=== PATIENT | male | born 1950 | race Caucasian/White ===

== ENCOUNTER 2024-11-05 15:43 | Inpatient (IN) | payer MEDICARE ==
[~2024-11-05] VITALS: Ht 162.6 cm; Wt 45.3 kg
[2024-11-05] MEDS ORDERED: NS 1,000 ML IV SCH ×3 (15:55→20:50)
[2024-11-05 16:29] LABS: BASOPHILS ABSOLUTE AUTO 0.01 K/mm3 (0.00-0.23); BASOPHILS PERCENT AUTO 0 % (0-2); EOSINOPHILS PERCENT AUTO 0 % (0-6); Hematocrit 39.7 % (37.0-53.0); Hemoglobin 12.9 g/dL (13.5-17.5); IMMATURE GRAN ABSOLUTE AUTO 0.09 K/mm3 (0.00-0.10); IMMATURE GRAN PERCENT AUTO 1 % (0-1); LYMPHOCYTES ABSOLUTE AUTO 0.52 K/mm3 (0.84-5.20); LYMPHOCYTES PERCENT AUTO 3 % (21-46); MONOCYTES ABSOLUTE AUTO 0.67 K/mm3 (0.16-1.47); MONOCYTES PERCENT AUTO 4 % (4-13); Mean Corpuscular HGB 30.2 pg (26.0-34.0); Mean Corpuscular HGB Conc 32.5 g/dL (31.5-36.5); Mean Corpuscular Volume 93 fL (80-100); Mean Platelet Volume 10.4 fL (9.1-12.4); NEUTROPHILS ABSOLUTE AUTO 13.86 K/mm3 (1.96-9.15); NEUTROPHILS PERCENT AUTO 92 % (41-73); Platelet Count 233 K/mm3 (150-400); RDW Coefficient Variation 14.2 % (11.7-14.2); Red Blood Cell Count 4.27 M/mm3 (4.30-5.90); White Blood Cell Count 15.15 K/mm3 (4.00-11.30)
[2024-11-05 16:51] LABS: PCO2 Arterial 27.2 mmHg (35-45); PO2 Arterial 164 mmHg (80-100); pH Blood Arterial 7.33 (7.35-7.45)
[2024-11-05 16:56] LABS: Albumin, Blood 2.5 g/dL (3.4-5.0); Albumin/Globulin Ratio 0.7 (0.8-1.8); Bilirubin, Total 1.3 mg/dL (0.1-1.0); Calcium, Blood 8.2 mg/dL (8.5-10.1); Creatinine, Blood 2.9 mg/dL (0.60-1.20); Globulin, Blood 3.4 g/dL (2.2-4.0); Potassium, Blood 3.8 mmol/L (3.5-5.5); Total Protein, Blood 5.9 g/dL (6.4-8.2)
[2024-11-05] MEDS ORDERED: CefTRIAXone Sodium 1,000 MG in NS 50 ML IV ONE (17:05)
[2024-11-05] MEDS ORDERED: Ondansetron HCl 2 MG / ML 2ML Vial IV PRN (20:50)
[2024-11-05] MEDS ORDERED: Azithromycin 500 MG in NS 250 ML IV SCH (21:00)
[2024-11-05 21:37] LABS: Bicarbonate Venous 18.6 mmol/L (24.0-30.0); PCO2 Venous 43.3 mmHg (38-42); pH Blood Venous 7.29 (7.34-7.37)
[2024-11-05 21:48] LABS: Hematocrit 41.3 % (37.0-53.0); Hemoglobin 13.4 g/dL (13.5-17.5); Mean Corpuscular HGB Conc 32.4 g/dL (31.5-36.5); Mean Corpuscular Volume 93 fL (80-100); Mean Platelet Volume 10.2 fL (9.1-12.4); Platelet Count 211 K/mm3 (150-400); RDW Coefficient Variation 14.3 % (11.7-14.2); RDW Standard Deviation 48.7 fL (35.1-46.3); Red Blood Cell Count 4.46 M/mm3 (4.30-5.90); White Blood Cell Count 13.85 K/mm3 (4.00-11.30)
[2024-11-05 22:00] VITALS: BP 119/97
[2024-11-05] MEDS ORDERED: Pantoprazole Sodium 40 MG Injection IV ONE (22:00)
[2024-11-05 22:04] LABS: Bun/Creatinine Ratio 39.8 (12.0-20.0); Calcium, Blood 7.7 mg/dL (8.5-10.1); Creatinine, Blood 2.89 mg/dL (0.60-1.20); Potassium, Blood 4.3 mmol/L (3.5-5.5)
[2024-11-05 22:20] VITALS: BP 97/67
[2024-11-05 22:54] VITALS: BP 97/69
[2024-11-05 23:30] VITALS: BP 100/67
[2024-11-05 23:45] VITALS: BP 109/65
[2024-11-06] VITALS (10 sets, daily range): BP systolic 94–132; BP diastolic 59–89
--- NOTE | 2024-11-06 02:35 | NUR ---
DENTURES I CHARTED THAT THE PT DID NOT HAVE TEETH, HOWEVER, ONCE HIS MENTATION STARTED TO CLEAR A BIT HE LET ME LOOK IN HIS MOUTH AND HE HAS UPPER AND LOWER DENTURES THAT HE SAYS HE WEARS ALL THE TIME.
[2024-11-06 04:22] LABS: BASOPHILS ABSOLUTE AUTO 0.01 K/mm3 (0.00-0.23); BASOPHILS PERCENT AUTO 0 % (0-2); EOSINOPHILS PERCENT AUTO 0 % (0-6); Hematocrit 38.2 % (37.0-53.0); IMMATURE GRAN ABSOLUTE AUTO 0.05 K/mm3 (0.00-0.10); IMMATURE GRAN PERCENT AUTO 0 % (0-1); LYMPHOCYTES ABSOLUTE AUTO 0.46 K/mm3 (0.84-5.20); LYMPHOCYTES PERCENT AUTO 4 % (21-46); MONOCYTES ABSOLUTE AUTO 0.51 K/mm3 (0.16-1.47); MONOCYTES PERCENT AUTO 4 % (4-13); Mean Corpuscular HGB 29.3 pg (26.0-34.0); Mean Corpuscular HGB Conc 31.4 g/dL (31.5-36.5); Mean Corpuscular Volume 93 fL (80-100); Mean Platelet Volume 10.4 fL (9.1-12.4); NEUTROPHILS ABSOLUTE AUTO 10.57 K/mm3 (1.96-9.15); NEUTROPHILS PERCENT AUTO 91 % (41-73); Platelet Count 187 K/mm3 (150-400); RDW Coefficient Variation 14.5 % (11.7-14.2); RDW Standard Deviation 49.3 fL (35.1-46.3)
[2024-11-06 04:51] LABS: Albumin, Blood 2.5 g/dL (3.4-5.0); Albumin/Globulin Ratio 0.8 (0.8-1.8); Bun/Creatinine Ratio 41.4 (12.0-20.0); Calcium, Blood 7.7 mg/dL (8.5-10.1); Creatinine, Blood 2.85 mg/dL (0.60-1.20); Globulin, Blood 3.3 g/dL (2.2-4.0); Potassium, Blood 3.7 mmol/L (3.5-5.5); Total Protein, Blood 5.8 g/dL (6.4-8.2)
[2024-11-06] MEDS ORDERED: Lactated Ringer's 1,000 ML IV SCH (05:15)
[2024-11-06] MEDS ORDERED: Pantoprazole Sodium 40 MG Injection IV SCH (06:00)
[2024-11-06] MEDS ORDERED: D5W-1/4NS 1,000 ML IV ONE (06:00)
--- NOTE | 2024-11-06 07:30 | NUR ---
ASSUMPTION OF CARE: ASSUMED CARE OF PT AFTER REPORT FROM NAI, RN. PT IS AROUSABLE TO THIS RN IN ROOM. AXO TO SELF. HE IS UNABLE TO STATEDATE/LOCATION/SITUATION. HE IS COHERENT AND CAN ANSWER YES AND NO QUESTIONS. HE HAS 1 PATENT IV 20G TO RFA WITH D5 RUNNING AT 100ML/HR. ON ASSESMENT HE IS EXTREMLY CACHECTIC. APS REPORTS THAT PT IS "INDEPENDENT" AT HOME BUT WOULD LIKELY BENEFIT FROM ASSISTANCE HE STRUGGLES WITH AMBULATION, EATING WELL, AND LIVES ON THIRD FLOOR OF APARTMENT, FAMILY IN [place] HAS BEEN CONTATCED AND IS DRIVING OVER TO DISCUSS FURTHER PLAN OF CARE. THEY STATE THEY WILL OFFER TO TAKE PT BACK TO [place] WITH THEM. PT HR SINUS 50-60S WAS PREVIOUSLY IN A-FIB IN ER. CONVERTED WITH FLUIDS. DENIES C/P. PT DROWSY. FIDGETY WHEN AWAKE BUT HAS NOT PULLED IV OR CORDS. HE HAS SEVERAL WOUNDS ANDS EXCORIATIONS T/O HIS SKIN, WAS FOUND DOWN. SOCIAL WORK, PALLIATIVE, AND APS INVOLVED IN CARE. VSS AND CALL LIGHT IN REACH. PT PLACED IN BREIF, SURG CONSULT ORDERED FOR POSITIVE FECAL OCCULT IN ED. PT FAILED BEDSIDE SWALLOW EVAL AND ST EVAL ORDERED WHERE PT WAS PLACED NPO. PLAN FOR TPN FOR NUTRITION.
[2024-11-06 07:38] LABS: Influenza A, PCR NEGATIVE (NEGATIVE); Influenza B, PCR NEGATIVE (NEGATIVE); Resp Syncytial Virus, PCR NEGATIVE (NEGATIVE); SARS-Cov-2 (COVID-19) PCR, MMC NEGATIVE (NEGATIVE)
[2024-11-06] MEDS ORDERED: Dextrose 5% 1,000 ML IV SCH ×2 (09:00→18:00)
[2024-11-06] MEDS ORDERED: Heparin Sodium 5000 Units/ML 1ML MDV SC SCH (09:00)
[2024-11-06] MEDS ORDERED: TPN Consult Notification XX ONE (11:50)
--- NOTE | 2024-11-06 12:38 | NUR ---
CASE CONFRENCE- DISCUSSED CASE WITH BRAND STRATEGIST. PATIENT HAS TWO SISTERS AND A FATHER THAT LIVE IN [place]. SISTER JEREMIAH WILL BE HERE TOMORROW. DISCUSSED WITH PC TEAM. PC WILL CONTINUE TO FOLLOW.
--- NOTE | 2024-11-06 15:54 | NUR ---
PT HAS INCREASE IN RESTLESSNESS, PULLING AT CLOTHES. WIRES. PT CBG CHECKED 112. AWAITING TO START TPN. PT FAMILY TO BE HERE BETWEEN [id number] PER PT FRIEND. PT VSS
[2024-11-06] MEDS ORDERED: Parenteral Electolytes 40 ML,POTASSIUM PHOS,M-BASIC-D-BASIC 30 MMOL,Multivitamins 10 ML... IV SCH (17:00)
[2024-11-06] MEDS ORDERED: CefTRIAXone Sodium 1,000 MG in NS 100 ML IV SCH (18:00)
--- NOTE | 2024-11-06 18:32 | NUR ---
PCU DAY SHIFT SUMMARY: REFER TO PT ASSUMPTION OF CARE NOTE. THERE WERE NO NOTABLE CHNAGES T/O THE DAY. PT REMAINED ON RA SATTTING >95%. REPORTED NO C/P. HE WAS ABLE TO ANSWER SOEM QUESTIONS. INCONTINENT OF STOOL AND URINE, PPN STARTED THROUGH IV. PT FAMILY FROM [place] ON WAY TO DISCUSS PLAN OF CARE. PT VSS B/P SOFT AT TIMES. APS HERE TO DISCUSS PT AND REPORTS HE WAS LAST OUT AND ABOUT 10/29/2024. PALLIATIVE CARE REQUEST CALL WHEN FAMILY ARRIVES. NO RUNS OF A-FIB. D5 RUNNING AT 150ML/HR FOR ELEVATED SODIUM.
--- NOTE | 2024-11-07 01:51 | NUR ---
UPDATE: PT'S TPN INFILTRATED. PT HAS HAD MULTIPLE IV'S INFILTRATE WITH TPN. THIS RN DISCUSSED THIS WITH NOC MD. NO NEW ORDERS AT THIS TIME. MD TO FOLLOW UP AT BEDSIDE.
[2024-11-07 03:59] VITALS: BP 129/85
[2024-11-07 04:36] LABS: Anion Gap 9 mmol/L (3-11); Blood Urea Nitrogen 87 mg/dL (8-24); Bun/Creatinine Ratio 40.3 (12.0-20.0); CO2, Blood 22 mmol/L (21-32); Chloride, Blood 126 mmol/L (98-108); Creatinine, Blood 2.16 mg/dL (0.60-1.20); Glomerular Filtration Rate 31 (60-); Glucose, Blood 103 mg/dL (70-99); Magnesium, Blood 3.2 mg/dL (1.6-2.4); Phosphorus, Blood 3.3 mg/dL (2.5-4.9); Potassium, Blood 3.5 mmol/L (3.5-5.5); Sodium, Blood 153 mmol/L (136-145); Triglycerides 76 mg/dL (30-160)
--- NOTE | 2024-11-07 05:18 | NUR ---
SHIFT SUMMARY PT ORIENTED TO SELF AND PLACE. ABLE TO PARTICIPATE IN SOME APPROPRIATE CONVERSATION. UNABLE TO USE CALL LIGHT OR EXPRESS NEEDS APPROPRIATELY. TPN HAS INFILTRATED MULTIPLE IV'S IN THE LAST [address] MCCRARY WHO SUGGESTS TO STOP TPN FOR NOW AND ADDRESS NUTRITIONAL NEEDS DURING THE DAY. PT IS INCONTINENT B&B HE IS DOES NOT CALL FOR ASSISTANCE WITH B&B EMPTYING. PT VERY CACHEXIC, REDNESS OVER BONY PROMINENCES, MEPILEX'S PLACED ON COCCYZ AND HIPS. Q2 TURNS, THOUGH PT IS VERY RESTLESS AND SHIFTING FREQUENTLY IN BED INDEPENDENTLY. PT IS VITALLY STABLE. SINUS HAYDEN ON TELE. SODIUM LEVEL TRENDING DOWN, LAST 153.
[2024-11-07 07:59] VITALS: BP 99/64
[2024-11-07] MEDS ORDERED: Dextrose 5% 1,000 ML IV SCH ×2 (09:00→14:00)
[2024-11-07 11:22] VITALS: BP 117/56
[2024-11-07 15:48] VITALS: BP 92/61
--- NOTE | 2024-11-07 17:20 | NUR ---
SHIFT SUMMARY PT REMAINS ALERT TO SELF AND PLACE. PT SLOW TO RESPOND AND SPEECH IS DIFFICULT TO UNDERSTAND. BP STABLE. HR REMAINS SB 40'S. PT DENIES ANY PAIN. INCONTINENT OF URINE THIS SHIFT. PT REPOSITIONED Q2H TO PREVENT PRESSURE INJURY, BUT PT MOVES HIMSELF IN THE BED FREQUENTLY. PT AWAITING PICC LINE PLACEMENT FOR CPN. D5 INFUSING PER ORDERS. LEFT ARM SWOLLEN FROM IV INFILTRATION ON PREVIOUS SHIFT. ARM ELEVATED ON PILLOWS. PT'S SISTER AT BEDSIDE THIS SHIFT AND UPDATED BY DR. GARCIA. WILL REPORT OFF TO ONCOMING RN
[2024-11-07 19:45] VITALS: BP 104/71
[2024-11-07 23:17] VITALS: BP 108/66
[2024-11-08 03:37] VITALS: BP 115/70
--- NOTE | 2024-11-08 04:42 | NUR ---
SHIFT SUMMARY. PATIENT IS ALERT AND ORIENTED WITH BOUTS OF CONFUSION. PATIENT CALLS APPROPRIATELY AND IS ABLE TO MAKE HIS NEEDS KNOWN. PATIENT HAD A 6 BEAT RUN OF V-TACH; SEE PREVIOUS NOTE. PATIENT USING URINAL AT BEDSIDE; PATIENT IS CONTINENT-BSC FOR BOWEL MOVEMENTS WITH 1P ASSIST. BED IS LOCKED IN THE LOWEST POSITION WITH CALL LIGHT IN REACH. CARE IS ONGOING.
[2024-11-08 04:57] LABS: Creatinine, Blood 1.5 mg/dL (0.60-1.20); Magnesium, Blood 2.4 mg/dL (1.6-2.4); Phosphorus, Blood 2.4 mg/dL (2.5-4.9); Potassium, Blood 3.2 mmol/L (3.5-5.5)
[2024-11-08] MEDS ORDERED: Potassium Chloride 40 MEQ in NS 250 ML IV ONE (06:00)
[2024-11-08 08:07] VITALS: BP 113/65
[2024-11-08] MEDS ORDERED: Potassium Phosphate Dibasic 30 MM in Dextrose 5% 500 ML IV STA (08:13)
[2024-11-08] MEDS ORDERED: Dextrose 5% 1,000 ML IV SCH ×2 (09:00→15:20)
[2024-11-08] MEDS ORDERED: Amino Acids 4.25 %/Dextrose 5% 1,000 ML IV SCH (09:15)
[2024-11-08] MEDS ORDERED: Potassium Phosphate Dibasic 30 MM in Dextrose 5% 500 ML IV ONE ×2 (10:00→11:10)
[2024-11-08] MEDS ORDERED: TPN Consult Notification XX ONE (11:40)
[2024-11-08 16:44] VITALS: BP 99/65
[2024-11-08] MEDS ORDERED: Parenteral Electolytes 40 ML,Potassium Phosphate Dibasic 30 MM,Multivitamins 10 ML,ZINC... IV SCH (17:00)
--- NOTE | 2024-11-08 17:06 | NUR ---
ASSUMED CARE FROM 0700. PICC PLACED TODAY AND D5 INFUSING AT 150ML/HR. SISTER AT BEDSIDE. PT VERBALIZES SISTER IS HIS DECISION MAKER AND SISTER AGREES. NUTRITION DISCUSSED AND PT AGREES TO FEEDING TUBS AND CUSTODIAL CARE IF NECESSARY. TPN STARTED AT 70ML/HR. STRICT NPO FOLLOWED. MEPILEX IN PLACE ON MELANIE PROMINENCES FOR PREVENTATIVE. Q2 TURNS THROUGHOUT SHIFT. A&OX3. ORIENTED TO SELF, PLACE, SITUATION. WICKING SYSTEM IN PLACE. STRICT BEDREST DUE TO WEAKNESS. TRANSFER TO MEDICAL FLOOR. REPORT GIVEN TO RN ASSUMING CARE.
--- NOTE | 2024-11-08 18:53 | NUR ---
SHIFT SUMMARY PATIENT ARRIVED TO MEDICAL FLOOR AROUND 1730, TPN INFUSING, D5 INFUSING. PICC LINE IN PLACE, TRIPLE LUMEN. FAMILY PRESENT AT BEDSIDE. MALE PURWICK IN PLACE, HOOKED TO SUCTION ON ARRIVAL. ORAL SUCTION SET UP. PATIENT NPO. ABLE TO GIVE SHORT RESPONSES, VOICE SOFT AND AT TIMES UNINTELLIGABLE. FAMILY STATES HE DOES NOT USE CALL LIGHT.
[2024-11-08 20:25] VITALS: BP 102/71
[2024-11-09 00:22] VITALS: BP 109/69
--- NOTE | 2024-11-09 03:46 | NUR ---
CLINIC OFFICE MANAGER SUMMARY: PT A&OX3. SOFT SPOKEN WITH SHORT AND SIMPLE RESPONSES. PT DOES NOT USE CALL LIGHT. FREQUENT VISUAL SAFETY CHECKS DONE T/O SHIFT. NO ACUTE EVENTS T/O SHIFT. PT STRICT NPO. TPN AND D5 INFUSING ORDERED. MALE PUREWICK IN PLACE, DRAINGING YELLOW URINE. 1-2 PERSON ASSIST WITH BED MOBILITY. BED IN LOWEST POSITION, CARES ONGOING ORDERED.
[2024-11-09 04:08] VITALS: BP 125/71
[2024-11-09 05:56] LABS: Bun/Creatinine Ratio 30.1 (12.0-20.0); Calcium, Blood 7.7 mg/dL (8.5-10.1); Creatinine, Blood 1.13 mg/dL (0.60-1.20); Magnesium, Blood 2.3 mg/dL (1.6-2.4); Phosphorus, Blood 2.1 mg/dL (2.5-4.9); Potassium, Blood 3.8 mmol/L (3.5-5.5)
[2024-11-09 07:15] VITALS: BP 116/67
[2024-11-09] MEDS ORDERED: Potassium Phosphate Dibasic 30 MM in Dextrose 5% 500 ML IV SCH (09:00)
--- NOTE | 2024-11-09 11:57 | NUR ---
Case reviewed with attending provider. Medical history, family constellation, and clinical trajectory discussed. Initial concerns were expressed when the principal was non-compos mentis, that he was bereft of a proxy decision maker. It is reported that his condition has stablized with a resultant imrpovement in cognition. He is now able to provide his own care plan attestation. In the event of incapacitation he has a family member i.e. a sister, who is involved and willing to support the decision making process. She is planning to pursue a voluntary guardianship arrangement. My recommendation in the interim is to dispatch palliative care, and have the principal complete an [place] Advance Directive that formaly designates his sister as the proxy. Thank you for this consult. Americo Potter, PhD, DARA
[2024-11-09] MEDS ORDERED: Docusate Sodium Liquid 100 MG UDC PT PRN (15:40)
[2024-11-09] MEDS ORDERED: Magnesium Hydroxide Conc 10 ML UDC PT PRN (15:40)
[2024-11-09] MEDS ORDERED: Bisacodyl 10 MG Supp PR PRN (15:40)
[2024-11-09 15:54] VITALS: BP 97/61
[2024-11-09 15:55] VITALS: BP 97/61
--- NOTE | 2024-11-09 18:32 | NUR ---
SUMMARY- PT AAOX3-4 THIS SHIFT. BEDREST. NO COMPLAINTS OF PAIN. PT TURNED Q 2 HRS THIS SHIFT. PT ON RA. DOBHOFF PLACED AT 1800 THIS SHIFT. WAITING FOR CXR TO CONFIRM OKAY TO START TUBE FEEDINGS.
[2024-11-09 19:38] VITALS: BP 104/70
[2024-11-09] MEDS ORDERED: NS 250 ML IV PRN (21:05)
[2024-11-10] MEDS ORDERED: TraMADol HCl 50 MG Tab PO PRN (00:30)
[2024-11-10] MEDS ORDERED: Acetaminophen 325 MG TABLET PO PRN (00:30)
[2024-11-10 00:52] VITALS: BP 100/64
[2024-11-10 03:50] VITALS: BP 105/70
--- NOTE | 2024-11-10 05:05 | NUR ---
SHIFT SUMMARY: PT A&O X3-4. SOFT SPOKEN AND SLOW WITH SPEECH. DOBHOFF PLACEMENT CONFIMRED WITH XRAY, DISCUSSED WITH HOSPITALIST. TF INITIATED PER ORDERS / ORDER. NO ADVERSE SIDE EFFECTS / COMPLAINTS T/O SHIFT TO TF. PT C/O PAIN IN NOSE, NEW ORDERS OBTAINED IN ADDITION TO HYPOGLYCEMIC PROTOCOL ORDERS FOR CBG OF 77. TURN Q2H SCHEDULE IN PLACE. PT DOES NOT USE CALL LIGHT. FREQUENT ROUNDING DONE ON PT T/O SHIFT. BED IN LOWEST POSITION. CARES ONGOING ORDERED.
[2024-11-10 06:58] LABS: Calcium, Blood 7.7 mg/dL (8.5-10.1); Creatinine, Blood 1.04 mg/dL (0.60-1.20); Magnesium, Blood 1.9 mg/dL (1.6-2.4); Phosphorus, Blood 2.3 mg/dL (2.5-4.9); Potassium, Blood 3.9 mmol/L (3.5-5.5)
[2024-11-10 07:10] VITALS: BP 91/58
[2024-11-10] MEDS ORDERED: Protein Supplement 30 ML UD PT SCH (09:00)
--- NOTE | 2024-11-10 15:34 | NUR ---
MET WITH PT AT BEDSIDE, DOBHOFF IN PLACE. PT'S BREATHING IS AUDIBLY MOIST, ALTHOUGH 02 SATS 97%, PULSE 64. PT STATES HE'S HAVING A HARD TIME CLEARING SECRETIONS. NOTIFIED PHYSICIAN.
[2024-11-10] MEDS ORDERED: Scopolamine Hydrobromide Patch TOP SCH (15:45)
[2024-11-10 17:40] VITALS: BP 92/63
--- NOTE | 2024-11-10 18:45 | NUR ---
SUMMARY- AAOX2-3. NO COMPLAINTS OF PAIN BESIDES MINIMAL NOSE/THROAT PAIN FROM DOBHOFF TUBE. BEDREST. ON RA. PT HAS EXCESS SECRETIONS. MOUTH SUCTIONED. PALLIATIVE CALLED. THIS RN ASKED IF ATROPINE DROPS WOULD BE APPROPRIATE; OR ASKED ABOUT ORDERING A SCOPOLOMINE PATCH. RADHA CAME TO BEDSIDE. RADHA ORDERED SCOPOLOMINE PATCH. WOUND DRESSINGS CHANGED THIS SHIFT. TUBE FEEDINGS INCREASED TO 30ML/HR. PT TOLERATED WELL.
[2024-11-10 20:05] VITALS: BP 97/60
[2024-11-10] MEDS ORDERED: Arginine/Glutamine/Calcium Hmb 1 Packet PT SCH (21:00)
[2024-11-11 00:22] VITALS: BP 90/61
[2024-11-11 05:02] VITALS: BP 96/60
[2024-11-11 05:50] LABS: Bun/Creatinine Ratio 34.1 (12.0-20.0); Calcium, Blood 7.6 mg/dL (8.5-10.1); Creatinine, Blood 0.91 mg/dL (0.60-1.20); Phosphorus, Blood 1.8 mg/dL (2.5-4.9); Potassium, Blood 3.9 mmol/L (3.5-5.5)
--- NOTE | 2024-11-11 06:01 | NUR ---
PATIENT HAS BEEN SLEEPING INTERMITTANTLY THROUGHOUT THE NIGHT. CONDOM CATHETER IS PATENT AND DRAINING CLEAR YELLOW URINE. FEEDING TUBE IS INFUSING WITHOUT COMPLICATIONS. PATIENT DENIES PAIN. PATIENT IS ORIENTED X2. VITAL SIGNS ARE STABLE. SAFETY PRECAUTIONS ARE BEING MAINTAINED.
[2024-11-11] MEDS ORDERED: Multivitamins-Minerals Liquid 15 ML Oral Syringe PT SCH (09:00)
[2024-11-11] MEDS ORDERED: Thiamine HCl 100 MG Tab PT SCH (09:00)
[2024-11-11 09:03] VITALS: BP 97/65
[2024-11-11] MEDS ORDERED: Potassium Phosphate Dibasic 30 MM in Dextrose 5% 500 ML IV STA (09:20)
--- NOTE | 2024-11-11 11:59 | NUR ---
ATTEMPTED VISIT THIS MORNING. PT APPEARED ASLEEP. NO S/SX OF DISTRESS NOTED. PRIMARY RN DENIES ANY ACUTE NEEDS AT THIS TIME.
[2024-11-11 12:31] VITALS: BP 96/63
[2024-11-11 16:52] VITALS: BP 103/66
--- NOTE | 2024-11-11 17:53 | NUR ---
SUMMARY- NO CHANGES WITH PT THIS SHIFT. NO ACUTE EVENTS. AAOX2-3. NO COMPLAINTS OF PAIN. BEDREST. PT ON RA. PT VERBALIZED HE WOULD LIKE A PEG TUBE FOR FEEDINGS IN THE FUTURE WHEN THE DOBHOFF WAS REMOVED.
[2024-11-11 19:51] VITALS: BP 105/66
[2024-11-12] VITALS (7 sets, daily range): BP systolic 101–134; BP diastolic 58–82
[2024-11-12] MEDS ORDERED: FentaNYL Citrate 50 MCG/ML 2 ML Injection IV PRN (02:50)
--- NOTE | 2024-11-12 04:15 | NUR ---
SHIFT SUMMARY PATIENT HAD NO ACUTE CHANGES. AXOX 2-3 AMD BEDREST. CONDOM CATH IN PLACE. NPO WITH DOBHOFF IN PLACE, TUBE FEEDING @ 30mL/HR. DENIES CHEST PAIN, SOB, AND N/V. VSS/AFEBRILE. CBG 105. PICC LINE RU ARM. IV ABX INFUSED. TELE MONITOR NSR 60. SLEPT ON/OFF. CALL LIGHT IN REACH. BED IN LOWEST POSITION. WILL CONTINUE TO MONITOR UNTIL DAY SHIFT NURSE ASSUMES CARE.
[2024-11-12 05:44] LABS: Magnesium, Blood 1.7 mg/dL (1.6-2.4); Phosphorus, Blood 2.4 mg/dL (2.5-4.9)
[2024-11-12 10:03] LABS: Calcium, Blood 7.6 mg/dL (8.5-10.1); Creatinine, Blood 0.85 mg/dL (0.60-1.20); Potassium, Blood 3.7 mmol/L (3.5-5.5)
[2024-11-12] MEDS ORDERED: Potassium Phosphate Dibasic 10 MM in Dextrose 5% 250 ML IV STA (14:40)
--- NOTE | 2024-11-12 16:37 | NUR ---
CASE CONFRENCE- DISCUSSED CASE WITH PROVIDER, FEATHEREDGER AND REDUCER MACHINE, AND DIETITION. PATIENT IS CONSIDERING A PEG TUBE. ROUNDED ON PATIENT THIS SHIFT HE IS SLEEPING, BUT APPEARS COMFORTABLE AT THIS TIME. RECIEVING NUTRITION THROUGH MELANIA KELLY. PC WILL CONTINUE TO FOLLOW
--- NOTE | 2024-11-12 18:25 | NUR ---
SHIFT SUMMARY PATIENT SLEEPING MUCH OF SHIFT. HE DOES ATTEMPT TO PARTICIPATE WITH TURNING DURING BEDBATH X2 TODAY, 2 BM NOTED DURING THIS SHIFT. HE IS ABLE TO FOLLOW COMMANDS DURING ISOMETRIC EXERCISE ATTEMPTS BY THIS HEAD OF STRATEGY. HE KNOWS HIS NAME/, ABLE TO USE WHITEBOARD TO STATE DATE, KNOWS HE IS IN [facility] AND THAT HIS HEALTH HAS SIGNIFICANTLY DECLINED IN THE PAST 2 WEEKS. HE DENIES ANY PAIN ISSUES. HE HAS BEEN TOLERATING RATE INCREASE TODAY. BED IN LOW POSITION, CALL LIGHT IN REACH. HE DOES NOT CALL AND NEEDS FREQUENT ROUNDING AND IS TURNED Q2 HOURS.
[2024-11-13 03:49] VITALS: BP 101/61
--- NOTE | 2024-11-13 04:00 | NUR ---
SHIFT SUMMARY PATIENT HAD NO ACUTE CHANGES. AXOX 3 WITH CONFUSION AND SLOW TO RESPOND. NPO AND BEDREST. CONDOM CATH IN PLACE. DOBHOFF WITH 40 mL FEEDING. DENIES CHEST PAIN, SOB, AND N/V. VSS/AFEBRILE. POWER PICC RU ARM. IV ABX INFUSED. TELE MONITOR SB 62. CBG 99. CALL LIGHT IN REACH. BED IN LOWEST POSITION. WILL CONTINUE TO MONITOR UNTIL DAY SHIFT NURSE ASSUMES CARE.
[2024-11-13 07:43] VITALS: BP 113/58
[2024-11-13 08:48] LABS: Calcium, Blood 7.6 mg/dL (8.5-10.1); Creatinine, Blood 0.84 mg/dL (0.60-1.20); Magnesium, Blood 1.6 mg/dL (1.6-2.4); Potassium, Blood 3.9 mmol/L (3.5-5.5)
[2024-11-13 12:00] VITALS: BP 107/66
[2024-11-13 16:18] VITALS: BP 115/72
--- NOTE | 2024-11-13 17:07 | NUR ---
SHIFT SUMMARY PT CONT LEVEL OF CARE WITH NO ACUTE CHANGES NOTED. PT NOTED TO BE A&OX 2-3. PT REMAINS ON BEDREST. PT NOTED TO BE INCONT OF BOWEL AND BLADDER. PT DENIES PAIN THIS SHIFT. PT CONT TO BE NPO WITH DOBHOFF IN PLACE FEED RATED NOTED TO INCREASE TO 50/HR AND FLUSH RATE NOTED TO DECREASE TO 30ML Q4HR. PT CONT TO UTILIZE DOBHOFF FOR MEDICATION USE WELL.
[2024-11-13 19:42] VITALS: BP 111/69
[2024-11-14 00:18] VITALS: BP 102/65
[2024-11-14 04:20] VITALS: BP 103/67
--- NOTE | 2024-11-14 05:39 | NUR ---
Shift Summary No acute changes. Pt tolerating dobhoff feed at 50 ml/hr, no c/o of discomfort. He had 1 incontinent loose BM. Icontinent voids, attends changed PRN. AOx3, bedrest, on tele running SR no events.
[2024-11-14 05:44] LABS: Magnesium, Blood 1.6 mg/dL (1.6-2.4); Phosphorus, Blood 1.9 mg/dL (2.5-4.9); Triglycerides 48 mg/dL (30-160)
[2024-11-14 07:28] VITALS: BP 106/65
[2024-11-14 09:28] LABS: Bun/Creatinine Ratio 52.5 (12.0-20.0); Calcium, Blood 7.7 mg/dL (8.5-10.1); Creatinine, Blood 0.71 mg/dL (0.60-1.20); Potassium, Blood 3.9 mmol/L (3.5-5.5)
[2024-11-14] MEDS ORDERED: Loperamide HCL 1 MG/7.5 ML UDC PT PRN (10:45)
[2024-11-14] MEDS ORDERED: HYDROcodone 5-APAP 325 TAB PO PRN (11:15)
[2024-11-14 11:17] VITALS: BP 102/64
[2024-11-14] MEDS ORDERED: Potassium Phosphate Dibasic 30 MM in Dextrose 5% 500 ML IV STA (12:27)
[2024-11-14 14:29] LABS: Adenovirus F 40/41 Not Detected (NOT DETECT); Astrovirus Not Detected (NOT DETECT); Campylobacter Sp Not Detected (NOT DETECT); Cryptosporidium Not Detected (NOT DETECT); Cyclospora Cayetanensis Not Detected (NOT DETECT); E. Coli O157 Not Detected (NOT DETECT); Entamoeba Histolytica Not Detected (NOT DETECT); Enteroaggregative E. coli-EAEC Not Detected (NOT DETECT); Enteropathogenic E. coli-EPEC Not Detected (NOT DETECT); Enterotoxigenic E. coli-ETEC Not Detected (NOT DETECT); Giardia Lamblia Not Detected (NOT DETECT); Norovirus GI/GII Not Detected (NOT DETECT); Plesiomonas Shigelloides Not Detected (NOT DETECT); Rotavirus A Not Detected (NOT DETECT); Salmonella Sp Not Detected (NOT DETECT); Sapovirus Not Detected (NOT DETECT); Shiga Toxin-prod E. coli-STEC Not Detected (NOT DETECT); Shigella/Enteroin E. coli-EIEC Not Detected (NOT DETECT); Vibrio Cholerae Not Detected (NOT DETECT); Vibrio Sp Not Detected (NOT DETECT); Yersinia Enterocolitica Not Detected (NOT DETECT)
[2024-11-14 15:42] VITALS: BP 112/69
--- NOTE | 2024-11-14 18:25 | NUR ---
SUMMARY- PT A/O X2-3, SOFT VERBAL, ABLE TO MAKE NEEDS KNOWN, VOICE SOFT. NODS YES AND NO. PT IS CACHECTIC, DEPENDANT IN CARE, TURNED Q2. PT HAVING DIARRHEA THIS AM, STARTED ON IMMODIUM AFTER CONFIRMING CDIFF NEG, NO BM SINCE THIS AM. ALSO STARTED NORCO FOR PAIN; PT STATES RELEIF. PT TOLERATING TUBE FEEDS AND SUGARS IN NORMAL LIMITS. NO VISITORS, SISTER CALLED AND RN ASSISTED PT TO TALK TO HER ON THE PHONE. WILL REPORT TO NOC RN
[2024-11-14 19:34] VITALS: BP 112/81
[2024-11-14] MEDS ORDERED: Menthol/Zinc Oxide Ointment 1 APPLIC/113 GM Tube TOP SCH (21:00)
[2024-11-15 02:00] VITALS: BP 109/65
--- NOTE | 2024-11-15 06:28 | NUR ---
SHIFT SUMMARY ALERT, RESTLESS ONSET SHIFT, ANXIOUS, SPEECH SLOW ,DELAYED. GENERALIZED UNCOORDINATED BODY MOVEMENTS NOTED. TRING TO GET 00B TO FIND PERSONAL BELONGINGS SEVERAL TIMES. REORIENTED TO SITUATION NEEDED T/O SHIFT. INCONTINENT OF LG AMT URINE FREQUENTLY AND LOOSE YELLOW STOOL X1. FREQUENT BERTRAND CARE AND REPOSITIONING PERFORMED, SKIN REDNESS IMPROVED, BONY PROMINENCED PROTECTED W/FOAM DSGS & PILLOW SUPPORT. RESTED W/EYES CLOSED MOST OF THE NIGHT, TOLERATED TUBE FEEDING VIA DODHOFF AT ORDERED RATE. CBG 96 AT 0000 AND 99 AT 0600. LABS DRAWN FROM RED LUMEN OF PICC LINE THIS A.M. AND FLUSHED WITH 20 ML SNS AND CAP CHANGED. VSS.
[2024-11-15 06:50] LABS: Bun/Creatinine Ratio 42.6 (12.0-20.0); Calcium, Blood 7.9 mg/dL (8.5-10.1); Creatinine, Blood 0.7 mg/dL (0.60-1.20); Magnesium, Blood 1.8 mg/dL (1.6-2.4); Phosphorus, Blood 2.7 mg/dL (2.5-4.9)
[2024-11-15 07:40] VITALS: BP 103/65
[2024-11-15] MEDS ORDERED: LORazepam 2 MG/ML 1ML Injection IV PRN (12:10)
--- NOTE | 2024-11-15 14:56 | NUR ---
MET WITH PATIENT. HE WAS SITTING UP IN BED AND TALKING. HE REPORTED THAT HIS TUBE FEEDINGS WERE GOING "SLOW". HE STATED THAT HE IS FEELING BETTER. DISCUSSED CASE WITH BEDSIDE RN. UPDATED HER ON PATIENTS HISTORY.
[2024-11-15 15:38] VITALS: BP 111/69
[2024-11-15 19:47] VITALS: BP 110/61
--- NOTE | 2024-11-15 20:14 | NUR ---
SUMMARY- PT A/O X3, DEPENDANT IN ADL'S. TURNED Q2. PT SCOOTS BACK TO BACK AND MAKES IT HARD TO KEEP HIM OFF HIS BONY BUTTOCK. MEPILEX INTACT TO SACRAL AREA FOR PROTECTION. ADDED A NEW MEPILEX TO MIDBACK FOR REDNESS OVER BONY PROMINANCE. PT REMAINS NPO, TOLERATING DUBHOFF FEEDS AT GOAL RATE 50ML HR. DIARRHEA HAS SUBSIDED AFTER IMODIUM STARTED YESTERDAY. BLOOD SUGARS STABLE; DC'D CBG'S. UPDATED SISTER ON THE PHONE. 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 EXPLAINED TO PT ALTERNATIVES AND BENIFITS OF BOTH. PALLIATIVE ON BOARD. REPORTED TO RADHA TRIMBLE RN
[2024-11-16 04:15] VITALS: BP 110/79
--- NOTE | 2024-11-16 04:52 | NUR ---
SHIFT SUMMARY 74 YR M ADMITTED ON 11/05/24. DNR. PT APPEARS TO BE CONFUSED AND DOES NOT EASILY FOLLOW SIMPLE INSTRUCTION. AT ONE POINT HE GOT OUT OF BED AND LAYED ON THE FLOOR WHERE HE HAD A LARGE, LOOSE BM. HE HAD IT ALL OVER HIS HANDS AND IT WAS DIFFICULT TO CLEAN HIM UP HE DOES NOT FOLLOW INSTRUCTION. AFTER BEING MEDICATED HE SLEPT FOR SEVERAL HOURS. HE IS REPOSITIONED FREQUENTLY AND IS ALSO ABLE TO TURN HIMSELF IN BED. TUBE FEEDING CONTINUES AT A RATE OF 50.
[2024-11-16 07:31] VITALS: BP 105/61
[2024-11-16] MEDS ORDERED: Gabapentin 100 MG Cap PO SCH (14:00)
[2024-11-16] MEDS ORDERED: Gabapentin 250 MG/5 ML ORAL SYRINGE PT SCH (14:00)
[2024-11-16 16:13] VITALS: BP 101/65
--- NOTE | 2024-11-16 18:41 | NUR ---
SUMMARY- AAOX3 THIS SHIFT. PT TOLERATING FEEDS AT 60ML/HR. BACK PAIN WELL CONTROLLED WITH EMAR PAIN MEDS. BEDREST. PT ON RA. DOBHOFF AT 68CM. NO ACUTE EVENTS THIS SHIFT.
[2024-11-16 19:50] VITALS: BP 118/78
[2024-11-17] VITALS (9 sets, daily range): BP systolic 95–119; BP diastolic 61–71
--- NOTE | 2024-11-17 04:45 | NUR ---
SHIFT SUMMARY NO ACUTE CHANGES THIS SHIFT. PT SLEPT OFF AND ON THROUGHOUT SHIFT. TUBE FEEDING STOPPED AT 0400 IN ANTICIPATION OF SURGERY FOR PEG TUBE INSERTION TODAY. BED IN LOW POSITION WITH ALARM ON, AND CALL LIGHT IN REACH.
[2024-11-17 05:39] LABS: BASOPHILS ABSOLUTE AUTO 0.02 K/mm3 (0.00-0.23); BASOPHILS PERCENT AUTO 1 % (0-2); EOSINOPHILS ABSOLUTE AUTO 0.04 K/mm3 (0.00-0.68); EOSINOPHILS PERCENT AUTO 1 % (0-6); Hematocrit 25.9 % (37.0-53.0); Hemoglobin 8.6 g/dL (13.5-17.5); IMMATURE GRAN ABSOLUTE AUTO 0.01 K/mm3 (0.00-0.10); IMMATURE GRAN PERCENT AUTO 0 % (0-1); LYMPHOCYTES ABSOLUTE AUTO 0.61 K/mm3 (0.84-5.20); LYMPHOCYTES PERCENT AUTO 18 % (21-46); MONOCYTES ABSOLUTE AUTO 0.29 K/mm3 (0.16-1.47); MONOCYTES PERCENT AUTO 9 % (4-13); Mean Corpuscular HGB 29.7 pg (26.0-34.0); Mean Corpuscular HGB Conc 33.2 g/dL (31.5-36.5); Mean Corpuscular Volume 89 fL (80-100); Mean Platelet Volume 9.5 fL (9.1-12.4); NEUTROPHILS ABSOLUTE AUTO 2.44 K/mm3 (1.96-9.15); NEUTROPHILS PERCENT AUTO 72 % (41-73); Platelet Count 147 K/mm3 (150-400); RDW Coefficient Variation 15.2 % (11.7-14.2); RDW Standard Deviation 46.4 fL (35.1-46.3); White Blood Cell Count 3.41 K/mm3 (4.00-11.30)
[2024-11-17 05:58] LABS: Bun/Creatinine Ratio 50.8 (12.0-20.0); Calcium, Blood 7.9 mg/dL (8.5-10.1); Creatinine, Blood 0.63 mg/dL (0.60-1.20); Magnesium, Blood 1.8 mg/dL (1.6-2.4); Phosphorus, Blood 2.1 mg/dL (2.5-4.9); Potassium, Blood 3.8 mmol/L (3.5-5.5)
--- NOTE | 2024-11-17 16:24 | NUR ---
PT TO DAY SURGERY FOR PEG TUBE PLACEMENT.
[2024-11-17] MEDS ORDERED: Lactated Ringer's 1,000 ML IV SCH (16:35)
--- NOTE | 2024-11-17 17:05 | NUR ---
11/17/24 1705 Willian Alexandra PT ARRIVED TO UNIT VIA [facility]URN. TRANSFERRED TO [facility] WITH SLIDER SHEET AND STAFF. ALL BELONGINGS LEFT IN PT'S ROOM. Pre-Op teaching done. Patient verbalizes understanding. History, Chart, Medications and Allergies reviewed before start of procedure. NO FAMILY MEMBERS WITH PATIENT DURING [facility] PRE OP. DNR SUSPENSION FORM GIVEN TO ANESTHESIA PROVIDER. PT CONFIRMED NAME AND DATE OF . MONITOR INTACT WITH CONTINUOUS PULSE OXIMETRY, CONTINUOUS END TITAL CO2, 3-LEAD EKG AND INTERMITTENT BLOOD PRESSURE. 3-LEAD EKG REVIEWED WITH PHYSICIAN PRIOR TO START OF PROCEDURE. Bite Block Placed AT START OF PROCEDURE.
--- NOTE | 2024-11-17 17:42 | NUR ---
SHIFT SUMMARY NO ACUTE CHANGES. PT A/O TO SELF AND PLACE, ABLE TO MAKE NEEDS KNOWN. SPEECH IS SLOW AND MUMBLED BUT RN ABLE TO COMPREHEND. PT TREATED FOR PAIN PER EMAR. MEPILEX PADS ON MELANIE PROMINENCES CHANGED TODAY. PEG TUBE PLACED - TUBE SITTING AT 1.5 AT THE SKIN, BINDER IN PLACE. OKAY TO START USE TOMORROW MORNING. PT AWAKE AND ALERT UPON RETURN, VITALS WNL. PT DENIES PAIN. PT CURRENTLY RESTING IN HOSPITAL BED WITH BED IN LOWEST POSITION AND BED ALARM ON, PT USES CALL LIGHT APPROPRIATELY - CALL LIGHT WITHIN REACH.
[2024-11-17] MEDS ORDERED: POTASSIUM PHOSPHATE DIBASIC IV SCH (19:00)
[2024-11-17] MEDS ORDERED: NS IV SCH (19:00)
[2024-11-18 00:50] VITALS: BP 118/73
[2024-11-18 04:47] VITALS: BP 114/69
--- NOTE | 2024-11-18 05:08 | NUR ---
SHIFT SUMMARY NO ACUTE CHANGES THIS SHIFT. PT HAS BEEN AWAKE AND ALERT FOR MOST OF THE NIGHT. HE IS FREQUENTLY ASKING FOR PAINMEDS STATING HIS BACK HURTS. HE IS BEING REPOSITIONED FREQUENTLY. HE IS ALSO REQUSETING ORAL CARE FREQUENTLY WHEN HE IS ADVISED THAT HE CANNOT DRINK ANYTHING DUE TO ASPIRATION PRECAUTIONS. ABDOMINAL BINDER IS IN PLACE OVER PEG TUBE SITE. BED IN LOW POSITION AND CALL LIGHT IN REACH.
[2024-11-18 06:35] LABS: BASOPHILS ABSOLUTE AUTO 0.03 K/mm3 (0.00-0.23); BASOPHILS PERCENT AUTO 0 % (0-2); EOSINOPHILS ABSOLUTE AUTO 0.01 K/mm3 (0.00-0.68); EOSINOPHILS PERCENT AUTO 0 % (0-6); Hematocrit 26.5 % (37.0-53.0); Hemoglobin 8.9 g/dL (13.5-17.5); IMMATURE GRAN ABSOLUTE AUTO 0.05 K/mm3 (0.00-0.10); IMMATURE GRAN PERCENT AUTO 0 % (0-1); LYMPHOCYTES PERCENT AUTO 5 % (21-46); MONOCYTES ABSOLUTE AUTO 0.39 K/mm3 (0.16-1.47); MONOCYTES PERCENT AUTO 4 % (4-13); Mean Corpuscular HGB Conc 33.6 g/dL (31.5-36.5); Mean Corpuscular Volume 89 fL (80-100); Mean Platelet Volume 9.1 fL (9.1-12.4); NEUTROPHILS PERCENT AUTO 90 % (41-73); Platelet Count 154 K/mm3 (150-400); RDW Coefficient Variation 15.8 % (11.7-14.2); RDW Standard Deviation 46.8 fL (35.1-46.3); Red Blood Cell Count 2.97 M/mm3 (4.30-5.90); White Blood Cell Count 11.18 K/mm3 (4.00-11.30)
[2024-11-18 06:57] LABS: Bun/Creatinine Ratio 34.2 (12.0-20.0); Calcium, Blood 8.1 mg/dL (8.5-10.1); Creatinine, Blood 0.7 mg/dL (0.60-1.20); Magnesium, Blood 1.8 mg/dL (1.6-2.4); Phosphorus, Blood 3.2 mg/dL (2.5-4.9); Potassium, Blood 3.8 mmol/L (3.5-5.5)
[2024-11-18 07:13] VITALS: BP 100/60
[2024-11-18 14:13] VITALS: BP 100/60
--- NOTE | 2024-11-18 18:21 | NUR ---
SHIFT SUMMARY NO ACUTE CHANGES, VITALS STABLE, PT A/Ox3, ABLE TO MAKE NEEDS KNOWN AND USING CALL LIGHT APPROPRIATELY. PEG TUBE USE INITIATED TODAY, PT TOLERATING WELL. TUBE FEEDINGS CURRENTLY GOING AT 25 ML/HR CONTINUOUS AND WILL BE ABLE TO INCREASED AT APPROX 2030 PER ORDERS. GOAL RATE IS 60 ML/HR. AUTOMATIC FLUSH OCCURING Q4H @ 30 ML/HR. PT TREATED FOR PAIN X1 PER EMAR, EFFECTIVE PER PT. LOOSE BM X3 TODAY SINCE RESTARTING FEEDS. PT CURRENTLY RESTING IN HOSPITAL BED WITH BED IN LOWEST POSITION AND CALL LIGHT WITHIN REACH.
[2024-11-18 19:22] VITALS: BP 102/60
[2024-11-19 04:37] VITALS: BP 88/55
[2024-11-19 05:10] VITALS: BP 111/59
[2024-11-19 07:53] VITALS: BP 92/60
[2024-11-19 16:30] VITALS: BP 101/63
--- NOTE | 2024-11-19 17:10 | NUR ---
SHIFT SUMMARY MR PINA IS ORIENTATED TO SELF, PLACE, DATE. HE SAID HE IS IN THE HOSPITAL FOR BACK AND LEG PAIN. CONVERSATION IS LOW VOLUME, SOMETIMES HARD TO UNDERSTAND, BUT APPROPRIATE. HE HAS MEPILEX ON MULTIPLE BONY PROMINENCES. COCCYX MEPILEX COVERING STAGE2 PRESSURE SORE CHANGED TODAY. ON EGGCRATE MATTRESS WITH ANKLE PROTECTORS. REPOSITIONED FREQUENTLY ~ EVERY HOUR. HE HAS TOLERATED PEG TUBE FEEDINGS OF JEVITY 1.2 NOW AT 65CC/HR. HOB ELEVATED. ABDOMINAL BINDER IN PLACE TO PROTECT GTUBE FROM DISPLACEMENT. INCONTINENT OF URINE AND ONE EPISODE OF LARGE LOOSE BROWN STOOL. MOSTLY HE HAS BEEN COMFORTABLE, GIVEN NORCO FOR PAIN IN BACK AND LEGS ONCE WITH GOOD RESULTS. WHEN HE TURNS ALL THE WAY OVER ONTO HIS SIDE FOR PERSONAL CARE HE DOES GET SHORT OF BREATH, RESOLVES ON REPOSITIONING. BED LOW, CALL LIGHT IN REACH, BED ALARM ON. PT DEMONSTRATED ABILITY TO USE THE CALL LIGHT BUT HAS NOT USED IT THIS SHIFT.
[2024-11-19 19:30] VITALS: BP 101/60
--- NOTE | 2024-11-20 03:42 | NUR ---
SHIFT SUMMARY NO ACUTE EVENTS DURING THIS SHIFT. PT IS A/O X2-3, MEDICATED FOR ABDOMINAL PAIN PER PT REQUEST PER EMAR. EFFECTIVE. PEG TUBE FEEDING @GOAL RATE OF 65MLS/HR. PT TOLERATING WELL, WITH FLUSHES PROGRAMMED Q4HRS 30MLS ON [place] PUMP. ORAL CARE PROVIDED. LOOSE STOOL X1, INCONTINENT OF BOWEL AND URINE. ATTENDS IN PLACE. Q6HR B. NPO. HOB>30 DEGREES AT ALL TIMES. MEPILEX IN PLACE BILATERAL ELBOWS, AND COCCYX. REPOSITIONED T/O THIS SHIFT. PT IS ON RA, SAT'S>95%. PT ABLE TO SOFTLY SPEAK TO COMMUNICATE NEEDS. ALL NEEDS MET. BED AT THE LOWEST POSITION, BED ALARM FOR SAFETY. PT OCCASIONALLY REPOSITIONING HIMSELF. PT RESTED WELL T/O THE NIGHT HRS. CALL LIGHT W/I REACH. FREQUENT CHECKS BY THE BEDSIDE.
[2024-11-20 05:27] LABS: BASOPHILS ABSOLUTE AUTO 0.02 K/mm3 (0.00-0.23); BASOPHILS PERCENT AUTO 1 % (0-2); EOSINOPHILS ABSOLUTE AUTO 0.05 K/mm3 (0.00-0.68); EOSINOPHILS PERCENT AUTO 2 % (0-6); Hematocrit 25.4 % (37.0-53.0); Hemoglobin 8.3 g/dL (13.5-17.5); IMMATURE GRAN PERCENT AUTO 0 % (0-1); LYMPHOCYTES ABSOLUTE AUTO 0.44 K/mm3 (0.84-5.20); LYMPHOCYTES PERCENT AUTO 15 % (21-46); MONOCYTES ABSOLUTE AUTO 0.15 K/mm3 (0.16-1.47); MONOCYTES PERCENT AUTO 5 % (4-13); Mean Corpuscular HGB 30.1 pg (26.0-34.0); Mean Corpuscular HGB Conc 32.7 g/dL (31.5-36.5); Mean Corpuscular Volume 92 fL (80-100); Mean Platelet Volume 9.8 fL (9.1-12.4); NEUTROPHILS ABSOLUTE AUTO 2.29 K/mm3 (1.96-9.15); NEUTROPHILS PERCENT AUTO 78 % (41-73); Platelet Count 144 K/mm3 (150-400); RDW Coefficient Variation 16.8 % (11.7-14.2); RDW Standard Deviation 51.6 fL (35.1-46.3); Red Blood Cell Count 2.76 M/mm3 (4.30-5.90); White Blood Cell Count 2.95 K/mm3 (4.00-11.30)
[2024-11-20 05:28] VITALS: BP 99/60
[2024-11-20 06:02] LABS: Bun/Creatinine Ratio 46.2 (12.0-20.0); Creatinine, Blood 0.65 mg/dL (0.60-1.20); Magnesium, Blood 1.9 mg/dL (1.6-2.4); Phosphorus, Blood 2.3 mg/dL (2.5-4.9); Potassium, Blood 4.1 mmol/L (3.5-5.5)
[2024-11-20 07:47] VITALS: BP 101/66
--- NOTE | 2024-11-20 12:13 | NUR ---
DURING PATIENT CARE/LINEN CHANGE PATIENT COMPLAINING OF SHORTNESS OF BREATHE "I CAN'T BREATHE" PATIENT SAT UP OXYGEN 100% ON ROOM AIR; OXYGEN STILL APPLIED. PATIENT'S BREATHING LABORED, STATES THAT IT FEELS THAT THERE IS AN OBSTRUCTION IN HIS THROAT. PATIENT TO WEAK TO COUGH OR CLEAR THROAT AND NPO. EXPLAINED TO PATIENT IS COULD BE DUE TO HIS TUBE FEED. PATIENT SITTING UP IN BED, LABORED BREATHING STILL, REPORTS SHORTNESS OF BREATH, CALL MADE TO DR. TERRY TO EVALUATE.
[2024-11-20] MEDS ORDERED: Ipratropium/Albuterol SulF 2.5-0.5MG/3 ML Amp INH ONE (12:40)
--- NOTE | 2024-11-20 13:45 | NUR ---
PATIENT EXPRESSED TO THIS RN THAT HE DESIRES TO EAT AND DRINK; DISCUSSED COMFORT CARE WITH THE PATIENT AND HE SOUNDS AGREEABLE TO DOING THAT AND STATED "TODAY" FOLLOWED UP WITH PALLATIVE CARE REGUARDING THIS AND THEY WILL FOLLOW UP WITH THE PATIENT
[2024-11-20] MEDS ORDERED: Sodium Phosphate 10 MM in Dextrose 5% 250 ML IV SCH (14:30)
[2024-11-20 16:13] VITALS: BP 103/70
--- NOTE | 2024-11-20 19:03 | NUR ---
SHIFT SUMMARY: PATIENT IN BED RESTING, RESPIRATIONS EVEN AND UNLABORED, PATIENT DOING BETTER SINCE HIS BREATHING EVENT THIS MORNING. CALL LIGHT WITHIN REACH, NO SIGNS OR SYMPTOMS OF DISTRESS, DISCUSSED MEDICAL INTERVENTIONS VERSUS COMFORT CARE; PATIENT DOES NOT APPEAR TO BE READY. PLAN OF CARE ONGOING.
[2024-11-20 19:13] VITALS: BP 94/58
[2024-11-20] MEDS ORDERED: Banana Flakes/Tos 1 EA Powder Pack PT SCH (21:00)
--- NOTE | 2024-11-21 03:06 | NUR ---
SHIFT SUMMARY NO ACUTE EVENTS DURING THIS SHIFT. PT DENIES PAIN/DISCOMFORT. TOLERATING FEEDING WELL. REPOSITIONED T/O THIS SHIFT. PT IS A/O X3-4 DURING THIS SHIFT. BED AT THE LOWEST POSITION, CALL LIGHT W/I REACH. FREQUENT CHECKS BY THE BEDSIDE. BED ALARM FOR SAFETY. MEPILEX CHANGED TO THE COCCYX AREA D/T LIQUID STOOL X1.
[2024-11-21 03:44] VITALS: BP 101/67
[2024-11-21 06:02] LABS: BASOPHILS ABSOLUTE AUTO 0.02 K/mm3 (0.00-0.23); BASOPHILS PERCENT AUTO 1 % (0-2); EOSINOPHILS ABSOLUTE AUTO 0.07 K/mm3 (0.00-0.68); EOSINOPHILS PERCENT AUTO 3 % (0-6); Hemoglobin 8.1 g/dL (13.5-17.5); IMMATURE GRAN PERCENT AUTO 0 % (0-1); LYMPHOCYTES ABSOLUTE AUTO 0.53 K/mm3 (0.84-5.20); LYMPHOCYTES PERCENT AUTO 19 % (21-46); MONOCYTES ABSOLUTE AUTO 0.16 K/mm3 (0.16-1.47); MONOCYTES PERCENT AUTO 6 % (4-13); Mean Corpuscular HGB 30.1 pg (26.0-34.0); Mean Corpuscular HGB Conc 32.4 g/dL (31.5-36.5); Mean Corpuscular Volume 93 fL (80-100); Mean Platelet Volume 9.1 fL (9.1-12.4); NEUTROPHILS ABSOLUTE AUTO 1.99 K/mm3 (1.96-9.15); NEUTROPHILS PERCENT AUTO 72 % (41-73); Platelet Count 120 K/mm3 (150-400); RDW Coefficient Variation 17.2 % (11.7-14.2); Red Blood Cell Count 2.69 M/mm3 (4.30-5.90); White Blood Cell Count 2.77 K/mm3 (4.00-11.30)
[2024-11-21 06:22] LABS: Albumin, Blood 2.2 g/dL (3.4-5.0); Albumin/Globulin Ratio 0.8 (0.8-1.8); Bilirubin, Total 0.5 mg/dL (0.1-1.0); Bun/Creatinine Ratio 44.7 (12.0-20.0); Calcium, Blood 7.7 mg/dL (8.5-10.1); Creatinine, Blood 0.56 mg/dL (0.60-1.20); Globulin, Blood 2.6 g/dL (2.2-4.0); Magnesium, Blood 1.8 mg/dL (1.6-2.4); Potassium, Blood 3.9 mmol/L (3.5-5.5); Total Protein, Blood 4.8 g/dL (6.4-8.2)
[2024-11-21 07:29] VITALS: BP 102/58
[2024-11-21 16:31] VITALS: BP 99/60
--- NOTE | 2024-11-21 16:49 | NUR ---
SHIFT SUMMARY: NO EVENTS OR CHANGES WITH THE PATIENT THROUGHOUT THE SHIFT. HE HAS BEEN MORE INCONTINENT TODAY; NOT CALLING WHEN HE GOES; HAS HAD X3 BLOW OUT BMS; THEY ARE LESS LIQUID SINCE STARTING THE [place]KES. PATIENT GETTING TUBE FEED AT 70ML/HR APPEARS TO BE TOLERATING WELL. HE MAKES HIS NEEDS KNOWN, DOES USE HIS CALL LIGHT. WE DID GET HIM UP TO THE RECLINER TODAY PER PATIENT REQUEST; LIFT USED. PATIENT CURRENTLY IN BED, CALL LIGHT WITHIN REACH, NO SIGNS OR SYMPTOMS OF DISTRESS, PLAN OF CARE ONGOING.
[2024-11-21 20:34] VITALS: BP 93/53
--- NOTE | 2024-11-22 02:51 | NUR ---
SHIFT SUMMARY NO ACUTE EVENTS DURING THIS SHIFT. MEDICATED PER EMAR FOR C/O RIGHT SHOULDER PAIN 04/04 PER PT REPORT. GOOD EFFECTIVNESS. PT GETTING THE GOAL AMOUNT OF 70MLS/HR OF JEVITY 1.2. TOLERATING WELL. 1X LOOSE STOOL, HEAVY WETTER. MEPILEX CHANGED ON COCCYX. MEPILEX'S C/D/I ON BILATERAL ELBOWS, HIPS AND HEELS. REPOSITIONED IN BED. BED ALARM FOR SAFETY. PT A/O X3-4 DURING THIS SHIFT. ABLE TO MAKE HIS NEEDS KNOWN AND COOPERATIVE WITH CARE. BED AT THE LOWEST POSITION, CALL LIGHT W/I REACH.
[2024-11-22 07:42] VITALS: BP 92/58
--- NOTE | 2024-11-22 15:17 | NUR ---
SHIFT SUMMARY PATIENT IN BED THIS SHIFT, TOLERATING PEG FEEDINGS WELL AT 70/HR. DRESSINGS CHANGED. TOLERATING REPOSITIONING WELL. VOICE QUIET AND HARD TO UNDERSTAND. ORAL CARE PERFORMED FREQUENTLY WITH SUCTION. MAINTAINING STRICT NPO. HOB MAINTAINED AT 30 DEGREES OR ABOVE. CALL LIGHT IN REACH, USING APPROPRIATELY, USUALLY ABLE TO MAKE NEEDS KNOWN.
[2024-11-22 15:29] VITALS: BP 100/55
--- NOTE | 2024-11-23 03:01 | NUR ---
SHIFT SUMMARY PT HAS BEEN AGITATED, ANXIOUS, AND IMPULSIVE ON AND OFF DURING THE NIGHT HRS. MEDICATED WITH IV ATIVAN 1MG PRN ONCE. MEDICATED FOR PAIN WITH PRN NORCO TWICE DURING THIS SHIFT. PT HAVING JERKING MOVEMENTS AND PULLING OUT HIS ATTENDS. ATTENDS CHANGED AND CHECKED Q2HRS AND PRN T/O THIS SHIFT. REPOSITIONED Q2HRS AND PRN. PT HAVING LOOSE STOOLS XXL IN SIZE, BROWN IN COLOR. TUBE FEEDING IS AT GOAL RATE OF 70MLS/HR. BED ALARM FOR SAFETY. BED AT THE LOWEST POSITION, CALL LIGHT W/I REACH. FREQUENT CHECKS BY THE BEDSIDE. RADIATION ONCOLOGY NURSE NOTIFIED.
[2024-11-23] MEDS ORDERED: LORazepam 2 MG/ML 1ML Injection IV ONE (03:45)
--- NOTE | 2024-11-23 03:45 | NUR ---
ONE TIME ORDER OF 2MG IV ATIVAN NOW ORDER RECEIVED FROM THE ON-CALL HOSPITALIST DR. GRAHAM. ENTERED TO [facility] SEE EMAR.
[2024-11-23 05:28] LABS: Hematocrit 25.9 % (37.0-53.0); Hemoglobin 8.4 g/dL (13.5-17.5); Mean Corpuscular HGB 30.1 pg (26.0-34.0); Mean Corpuscular HGB Conc 32.4 g/dL (31.5-36.5); Mean Corpuscular Volume 93 fL (80-100); Mean Platelet Volume 9.4 fL (9.1-12.4); Platelet Count 124 K/mm3 (150-400); RDW Coefficient Variation 17.3 % (11.7-14.2); RDW Standard Deviation 58.6 fL (35.1-46.3); Red Blood Cell Count 2.79 M/mm3 (4.30-5.90); White Blood Cell Count 2.45 K/mm3 (4.00-11.30)
[2024-11-23 05:57] LABS: Albumin, Blood 2.4 g/dL (3.4-5.0); Albumin/Globulin Ratio 0.9 (0.8-1.8); Bilirubin, Total 0.5 mg/dL (0.1-1.0); Calcium, Blood 7.7 mg/dL (8.5-10.1); Creatinine, Blood 0.59 mg/dL (0.60-1.20); Globulin, Blood 2.6 g/dL (2.2-4.0); Magnesium, Blood 1.8 mg/dL (1.6-2.4); Phosphorus, Blood 2.3 mg/dL (2.5-4.9)
[2024-11-23 06:36] LABS: BAND PERCENT MAN 5 % (0-8); BASOPHILS PERCENT MAN 0 % (0-2); EOSINOPHILS ABSOLUTE MAN 0.12 K/mm3 (0.00-0.68); EOSINOPHILS PERCENT MAN 5 % (0-6); LYMPHOCYTES ABSOLUTE MAN 0.53 K/mm3 (0.84-5.20); LYMPHOCYTES PERCENT MAN 22 % (21-46); METAMYELOCYTE ABSOLUTE MAN 0.07 K/mm3 (0.00-0.00); METAMYELOCYTE PERCENT MAN 3 % (0-0); MONOCYTES ABSOLUTE MAN 0.17 K/mm3 (0.16-1.47); MONOCYTES PERCENT MAN 7 % (4-13); MYELOCYTE ABSOLUTE MAN 0.04 K/mm3 (0.00-0.00); MYELOCYTE PERCENT MAN 2 % (0-0); NEUTROPHILS ABSOLUTE MAN 1.49 K/mm3 (1.96-9.15); SEG NEUTROPHILS PERCENT MAN 56 % (41-73); TOTAL CELLS COUNTED 100
[2024-11-23 08:46] VITALS: BP 103/62
[2024-11-23 11:10] VITALS: BP 115/72
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
[2024-11-23 15:40] VITALS: BP 104/64
--- NOTE | 2024-11-23 18:37 | NUR ---
SHIFT SUMMARY PT LETHARGIC THIS AM AND FOUND TO BE ATTEMPTING TO GET OOB UNSAFELY. RESTRAINTS WERE PLACED AND REMOVED, SEE PREVIOUS NOTE. PT REMAINS LETHARGIC AND ABLE TO SAY "YES" AND "NO" TO SOME QUESTIONS. TUBE FEEDING CONT AT GOAL RATE. ATIVAN MEDICATED PER ORDER FOR ANXIETY AND RESTLESSNESS. THIS RN NOTIFIED OF PT'S CHANGE IN MENTAL STATUS. VSS. CALL LIGHT WITHIN REACH AND BED ALARM ON.
[2024-11-23 19:36] VITALS: BP 103/64
[2024-11-24 02:55] VITALS: BP 103/61
--- NOTE | 2024-11-24 04:48 | NUR ---
Shift Summary Pt lethargic t/o the shift, he is AOx2 and mostly sleeping. He did attempt to get out of bed once but was directable back into bed. He had one loose incontinent BM. Tube feedings running at 70/ml hr continuously, no c/o of stomach cramping or discomfort. Medicated for pain x1 after patient care. Bed alarm on for safety.
[2024-11-24 09:18] VITALS: BP 114/70
[2024-11-24 15:53] VITALS: BP 92/57
--- NOTE | 2024-11-24 18:01 | NUR ---
SHIFT SUMMARY PT A&OX2-3 W/ SOME CONFUSION, BUT EASILY REDIRECTABLE. PT USED CALL LIGHT APPROPRIATELY T/O SHIFT AND DID NOT ATTEMPT TO AMB OOB UNSAFELY. PAIN MANAGED PER EMAR. PT ABLE TO MAKE NEEDS KNOWN. CALL LIGHT WITHIN REACH AND BED ALARM ON.
[2024-11-24 20:00] VITALS: BP 124/79
[2024-11-25 05:03] VITALS: BP 102/66
--- NOTE | 2024-11-25 05:43 | NUR ---
Shift Summary Pt AOx3, more alert and less lethargic than last night. No attempts to get OOB. No BM this shift. Tube feeding well tolerated at 70 ml/hr, no c/o of abd discomfort. Mumbled speech is difficult to understand and pt often cannot express what he thinking. Pt did c/o of some pain, medicated per emar, pt stated pain is well managed with current medication.
[2024-11-25 05:50] LABS: BASOPHILS ABSOLUTE AUTO 0.01 K/mm3 (0.00-0.23); BASOPHILS PERCENT AUTO 0 % (0-2); EOSINOPHILS ABSOLUTE AUTO 0.06 K/mm3 (0.00-0.68); EOSINOPHILS PERCENT AUTO 2 % (0-6); Hematocrit 25.9 % (37.0-53.0); Hemoglobin 8.6 g/dL (13.5-17.5); IMMATURE GRAN ABSOLUTE AUTO 0.01 K/mm3 (0.00-0.10); IMMATURE GRAN PERCENT AUTO 0 % (0-1); LYMPHOCYTES ABSOLUTE AUTO 0.88 K/mm3 (0.84-5.20); LYMPHOCYTES PERCENT AUTO 34 % (21-46); MONOCYTES ABSOLUTE AUTO 0.28 K/mm3 (0.16-1.47); MONOCYTES PERCENT AUTO 11 % (4-13); Mean Corpuscular HGB 30.6 pg (26.0-34.0); Mean Corpuscular HGB Conc 33.2 g/dL (31.5-36.5); Mean Corpuscular Volume 92 fL (80-100); Mean Platelet Volume 9.8 fL (9.1-12.4); NEUTROPHILS ABSOLUTE AUTO 1.36 K/mm3 (1.96-9.15); NEUTROPHILS PERCENT AUTO 52 % (41-73); Platelet Count 116 K/mm3 (150-400); RDW Coefficient Variation 18.1 % (11.7-14.2); RDW Standard Deviation 60.1 fL (35.1-46.3); Red Blood Cell Count 2.81 M/mm3 (4.30-5.90)
[2024-11-25 06:12] LABS: Albumin, Blood 2.5 g/dL (3.4-5.0); Albumin/Globulin Ratio 0.9 (0.8-1.8); Bilirubin, Total 0.6 mg/dL (0.1-1.0); Bun/Creatinine Ratio 45.2 (12.0-20.0); Calcium, Blood 7.9 mg/dL (8.5-10.1); Creatinine, Blood 0.69 mg/dL (0.60-1.20); Globulin, Blood 2.7 g/dL (2.2-4.0); Phosphorus, Blood 2.2 mg/dL (2.5-4.9); Potassium, Blood 4.5 mmol/L (3.5-5.5); Total Protein, Blood 5.2 g/dL (6.4-8.2)
[2024-11-25 09:22] VITALS: BP 115/67
[2024-11-25 13:51] VITALS: BP 101/58
[2024-11-25 15:15] VITALS: BP 103/61
--- NOTE | 2024-11-25 17:51 | NUR ---
SHIFT SUMMARY PT ALERT, BUT UNABLE TO VERBLAIZE SENTENCES. PT ABLE TO VERBALIZE "YES" AND "NO" TO QUESTIONS. PAIN MANAGED PER EMAR. PT COOPERATIVE W/ CARE AND DID NOT ATTEMPT TO AMB OOB UNSAFELY. PT CONT TO TOLERATE TUBE FEEDING. NO OTHER ACUTE CHANGES. CALL LIGHT WITHIN REACH AND BED ALARM ON.
[2024-11-25 19:39] VITALS: BP 107/67
[2024-11-26 02:33] VITALS: BP 103/72
--- NOTE | 2024-11-26 09:00 | NUR ---
pt laying in bed, had a loose incont stool this am, he hasn't spoke to this nurse but shakes his head yes/no, follows commands, lungs are clear dim t/o, resp even and unlabored, on r/a, no cough noted, hrr, no edema noted, ppp+2, cap refill <3 sec, vs stable, afebrile, picc line to taran site is clear and patent, btx4, abd flat soft nontender, peg tube in place, flushes well, site is clear, maew, pretty active in bed, skin has multiple mepilex dressings, otilio howe, call light in reach.
[2024-11-26 12:22] LABS: CORONAVIRUS COVID-19 AG Negative (NEGATIVE)
[2024-11-26] MEDS ORDERED: APHEN325 M1 PT (13:04)
[2024-11-26] MEDS ORDERED: JUVEN PACKET1 EAC3 PT (13:04)
[2024-11-26] MEDS ORDERED: BANATROL PLUS1 EAC1 PT (13:05)
[2024-11-26] MEDS ORDERED: GABA100 PT (13:06)
[2024-11-26] MEDS ORDERED: Norco 5-325 Ta1 EACH PO (13:07)
[2024-11-26] MEDS ORDERED: LOPERAMIDE1 MG/7.10 PT (13:10)
--- NOTE | 2024-11-26 13:10 | NUR ---
Pt has been discharged to [facility], report called to Jovana, picc line was removed intact, pt tolerated well, gave pt pain pill and immodium for loose stools, family has all belongings, left via gurney to [facility].
[2024-11-26] MEDS ORDERED: CEROVITE PT (13:13)
[2024-11-26] MEDS ORDERED: TRANSDERM-SCOP1 EA13 TD (13:14)
[2024-11-26] MEDS ORDERED: B-1100 M1 PT (13:16)
[2024-11-26] MEDS ORDERED: LANS15EC PT (13:17)
== END 2024-11-26 13:02 | DRG 871 ==
LOC: ER 15:43 → ERHOLD 20:45 → MEDS 20:45 → PCU 20:45 → MEDS 11-08 17:36
PROVIDERS: Emergency Medicine; Family Medicine; Internal Medicine; Nurse Practitioner Acute Care; ADMIT Student in an Organized Health Care Education/Training Program
PROC: 3E03329 Introduction of Other Anti-infective into Peripheral Vein, Percutaneous Approach (ICD-10-PCS; principal; 2024-11-05)
PROC: 3E0G76Z Introduction of Nutritional Substance into Upper GI, Via Natural or Artificial Opening (ICD-10-PCS; 2024-11-09)
PROC: 02HV33Z Insertion of Infusion Device into Superior Vena Cava, Percutaneous Approach (ICD-10-PCS; 2024-11-11)
PROC: 0DH63UZ Insertion of Feeding Device into Stomach, Percutaneous Approach (ICD-10-PCS; 2024-11-17)
DX: A41.9 Sepsis, unspecified organism (principal); E43 Unspecified severe protein-calorie malnutrition; J18.9 Pneumonia, unspecified organism; G92.8 Other toxic encephalopathy; N17.9 Acute kidney failure, unspecified; R64 Cachexia; E87.0 Hyperosmolality and hypernatremia; E87.21 Acute metabolic acidosis; Z68.1 Body mass index [BMI] 19.9 or less, adult; M62.82 Rhabdomyolysis; G89.29 Other chronic pain; S00.81XA Abrasion of other part of head, initial encounter; X58.XXXA Exposure to other specified factors, initial encounter; E83.39 Other disorders of phosphorus metabolism; E86.0 Dehydration; Z51.5 Encounter for palliative care; F03.90 Unspecified dementia, unspecified severity, without behavioral disturbance, psychotic disturbance, mood disturbance, and anxiety; Z66 Do not resuscitate; R13.10 Dysphagia, unspecified; I48.91 Unspecified atrial fibrillation; E87.6 Hypokalemia; Z74.01 Bed confinement status; R62.7 Adult failure to thrive; Z79.899 Other long term (current) drug therapy
CPT/HCPCS: 0241U; 31720; 36415; 36569; 36600; 70360; 70450; 71045; 71260; 74176; 74177; 80048; 80053; 82272; 82550; 82803; 82947; 83605; 83735; 84100; 84145; 84295; 84478; 84484; 85025; 85027; 86850; 86900; 86901; 87040; 87426-QW; 87507; 92526; 92610; 93005; 93010; 93306; 94640; 94664; 94760; 94762; 96361; 96365; 97129; 97162; 97165; 97530; 99285-25; A9270; C1751; C1769; J0456; J0696; J1644; J2060; J2470; J3010; J3411; J3480; J7030; J7050; J7060; J7070; J7120; Q9967

== ENCOUNTER 2024-11-26 23:28 | Emergency (ER) | payer MEDICARE ==
[~2024-11-26] VITALS: Ht 175.3 cm; Wt 65.8 kg
[~2024-11-26 23:28] MED LIST: APHEN325 M1 PT; B-1100 M1 PT; BANATROL PLUS1 EAC1 PT; CEROVITE PT; GABA100 PT; JUVEN PACKET1 EAC3 PT; LANS15EC PT; LOPERAMIDE1 MG/7.10 PT; Norco 5-325 Ta1 EACH PO; TRANSDERM-SCOP1 EA13 TD
[2024-11-27 05:23] VITALS: BP 106/71
== END 2024-11-27 05:37 | disposition home or self-care (01) ==
LOC: ER 23:28
DX: S09.90XA Unspecified injury of head, initial encounter (principal); S13.4XXA Sprain of ligaments of cervical spine, initial encounter; W18.30XA Fall on same level, unspecified, initial encounter; Z59.89 Other problems related to housing and economic circumstances; I48.91 Unspecified atrial fibrillation
CPT/HCPCS: 70450; 72125; 99284-25